=== PATIENT | female | born 1980 | race Two or more races ===

== ENCOUNTER 2017-01-14 17:53 | Emergency (ER) | payer BC, OTHER ==
[~2017-01-14] VITALS: Ht 160 cm; Wt 49.9 kg
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
--- NOTE | 2017-01-14 18:21 | NUR ---
ASSOCIATE PROFESSOR OF GEOLOGY AT BEDSIDE BLOOD SAMPLE COLLECTED
--- NOTE | 2017-01-14 18:25 | NUR ---
URINE SAMPLE COLLECTED SENT TO LAB
[2017-01-14 18:28] LABS: BASOPHILS % (AUTO) 0.3 % (0.0-2.0); EOSINOPHILS # (AUTO) 0.1 /CMM (0.0-0.7); EOSINOPHILS % (AUTO) 0.9 % (0.0-6.0); HEMATOCRIT 38 % (33-45); HEMOGLOBIN 12.5 g/dL (11.5-14.8); LYMPHOCYTES # (AUTO) 1.1 /CMM (0.8-4.8); LYMPHOCYTES % (AUTO) 17.8 % (20.0-44.0); MEAN CORPUSCULAR HEMOGLOBIN 28 PG (26.0-33.0); MEAN CORPUSCULAR HGB CONC 33 g/dl (31.0-36.0); MEAN CORPUSCULAR VOLUME 85 fL (82-100); MONOCYTES # (AUTO) 0.3 /CMM (0.1-1.30); MONOCYTES % (AUTO) 4.5 % (2.0-12.0); NEUTROPHILS # (AUTO) 4.8 /CMM (1.8-8.9); NEUTROPHILS % (AUTO) 76.5 % (43.0-81.0); PLATELET COUNT (AUTO) 281 /CMM (150-450); RDW COEFFICIENT OF VARIATION 12.2 (11.5-15.0); RED BLOOD CELL COUNT(AUTO) 4.42 MIL/uL (4.0-5.2); WHITE BLOOD COUNT (AUTO) 6.3 K/uL (4.3-11.0)
--- NOTE | 2017-01-14 18:38 | NUR ---
DR [place] AT BEDSIDE FOR PELVIC EXAM
[2017-01-14 18:45] LABS: CREATININE 0.8 mg/dL (0.6-1.3)
[2017-01-14 18:49] LABS: APPEARANCE,URINE Cloudy (CLEAR); BLOOD, URINE Large Ery/uL (NEGATIVE); COLOR,URINE Dark (YELLOW); KETONES,URINE Trace (NEGATIVE); LEUKOCYTE ESTERASE ,URINE Trace (NEGATIVE); NITRITE, URINE Negative (NEGATIVE); PROTEIN,URINE 30 mg/dl (NEGATIVE); UGLUCOSE Negative (NEGATIVE)
[2017-01-14 18:51] LABS: BILIRUBIN,URINE SMALL (NEGATIVE)
--- NOTE | 2017-01-14 19:00 | NUR ---
PROTECTION MANAGER AT BEDSIDE
[2017-01-14 19:07] LABS: ADD URINE CULTURE NO; BACTERIA,URINE Few /HPF (None Seen); RBC,URINE 81-100 /HPF (0-2); SQUAMOUS EPITHELIAL CELL,UR Few /HPF (None Seen)
--- NOTE | 2017-01-14 20:22 | NUR ---
Patient discharged to home in stable condition. Written and verbal after care instructions given. Patient verbalizes understanding of instruction.
[2017-01-14 20:24] VITALS: BP 110/63
== END 2017-01-14 20:25 | disposition home or self-care (01) ==
LOC: ER 17:55
DX: O20.0 Threatened abortion (principal); Z3A.01 Less than 8 weeks gestation of pregnancy; F17.210 Nicotine dependence, cigarettes, uncomplicated
CPT/HCPCS: 36415; 76856; 80048; 81001; 84702; 85025; 86850; 99285; A4606; Z7610; 81000-TC

== ENCOUNTER 2019-07-20 21:27 | Emergency (ER) | payer OTHER ==
[~2019-07-20] VITALS: Ht 160 cm; Wt 54.4 kg
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
--- NOTE | 2019-07-20 21:48 | NUR ---
PATIENT WAIVER FORM SIGNED.
[2019-07-20] MEDS ORDERED: ONDANSETRON 4 MG TAB.RAPDIS ONE (21:54)
--- NOTE | 2019-07-20 21:55 | NUR ---
TAKEN TO CT.
[2019-07-20] MEDS ORDERED: ONDANSETRON 4 MG TAB.RAPDIS SL ONE (22:00)
--- NOTE | 2019-07-20 22:02 | NUR ---
BACK FROM CT
--- NOTE | 2019-07-20 22:48 | NUR ---
Nelson landon in ED - 07/20/19 at 2318 by REBECA PATIENT WAIVER FORM SIGNED.
[2019-07-20] MEDS ORDERED: MECLIZINE HCL 12.5 MG TABLET ONE (22:51)
[2019-07-20] MEDS ORDERED: KETOROLAC TROMETHAMINE INJ 60 MG/2 ML VIAL IM ONE ×2 (22:51→23:00)
[2019-07-20] MEDS ORDERED: MECLIZINE HCL 12.5 MG TABLET PO ONE (23:00)
--- NOTE | 2019-07-20 23:44 | NUR ---
GIVEN PRESCRIPTION AND EXPLAINED.
--- NOTE | 2019-07-20 23:45 | NUR ---
IV removed. Catheter intact and site benign. Pressure and 4x4 applied to site. No bleeding noted. Patient discharged to home in stable condition. Written and verbal after care instructions given. Patient verbalizes understanding of instruction.
[2019-07-21 00:02] VITALS: BP 111/73
== END 2019-07-20 23:59 | disposition home or self-care (01) ==
LOC: ER 21:30
DX: S09.8XXA Other specified injuries of head, initial encounter (principal); F17.200 Nicotine dependence, unspecified, uncomplicated; Z98.890 Other specified postprocedural states; W22.8XXA Striking against or struck by other objects, initial encounter; Y93.89 Activity, other specified; Y92.89 Other specified places as the place of occurrence of the external cause; Y99.8 Other external cause status
CPT/HCPCS: 70450; 96372; 99284; 99406; J1885; J8597; Q0162